=== PATIENT | male | born 1975 | race Caucasian/White ===

== ENCOUNTER 2023-01-14 10:24 | Emergency (ER) | payer OTHER, SELFPAY ==
[2023-01-14 10:25] VITALS: BP 149/97; PULSE 90; RESP 17; TEMP 36.6; O2SAT 99; BMI 32.4
--- NOTE | 2023-01-14 10:50 | EXP.UTC ---
Discharge Plan Disposition Patient Disposition: Home, Self-Care Condition: Good Prescriptions Prescriptions: New amoxicillin [amoxicillin] 500 mg tablet 500 mg PO BID 10 Days Qty: 20 0RF Referrals Follow up/Referrals: Bon Marin [Primary Care Provider] - See instructions Activity Restrictions/Add. Instructions Additional Instructions/Restrictions: follow up with dentist - call monday for appointment if symptoms worsen or no improvement return antibiotics as ordered Clinical Impressions Clinical Impression: Dental abscess Instructions Patient Instructions: Tooth Abscess Discharge [facility] [place] HPI General Stated complaint: sinus pressure Mode of Arrival: Ambulatory Source of Information: Patient Limitations: No Limitations Time Seen by Provider: 01/14/23 10:50 Description of Symptoms (Recalled from Triage Doc. by RN): Patient reports possible sinus infection. Complaint of sinus pressure and drainage for 2 days. HEENT Symptoms (Recalled from RN notes): Yes Resp Symptoms (Recalled from RN notes): No Skin Symptoms (Recalled from RN notes): No MS Symptoms (Recalled from RN notes): No Functional Status (Recalled from RN notes): wnl History of Present Illness Provider Complaint: 47 yr old male presents for sinus pressure, pain and swelling. pt states he does have pain with biting has a sharp pain but no other pain. pt states he noticed the swelling yesterday and took Benadryl with no improvement of swelling. pt states he does have a bad wisdom tooth but it only hurts if he bites down Related Data Previous Rx's Medication Instructions Recorded amoxicillin 500 mg tablet 500 mg PO BID 10 days #20 tabs 01/14/23 Allergies Allergy/AdvReac Type Severity Reaction Status Date / Time fexofenadine [From Tanisha-D] Allergy Verified 01/14/23 10:44 pseudoephedrine Allergy Verified 01/14/23 10:44 [From Tanisha-D] Worker's Comp Is this a Worker's Comp case?: No [facility] Disclaimer: The information contained in this section may have been updated after the patient was seen, as this information can be updated by other users. Social History , [employer]) Smoking Status: Smoker, status unknown alcohol intake: never current occupational status: employed Travel in the last 8 weeks: None ROS Obtained: Yes All systems reviewed & no additional complaints except as documented Constitutional Constitutional: Reports system reviewed and no additional complaints, except as documented and Reports as per HPI Eyes Eyes: Reports system reviewed and no additional complaints, except as documented ENT Ears, Nose, Mouth, and Throat: Reports system reviewed and no additional complaints, except as documented, Reports as per HPI, Reports facial pain, Reports sinus pain, Reports sinus pressure, Denies throat swelling, Denies tongue swelling and Reports other Cardiovascular Cardiovascular: Reports system reviewed and no additional complaints, except as documented Respiratory Respiratory: Reports system reviewed and no additional complaints, except as documented Gastrointestinal Gastrointestingal: Reports system reviewed and no additional complaints, except as documented Musculoskeletal Musculoskeletal: Reports system reviewed and no additional complaints, except as documented Integumentary/Breasts Skin/Breast: Reports system reviewed and no additional complaints, except as documented Neurologic Neurologic: Reports system reviewed and no additional complaints, except as documented Endocrine Endocrine: Reports system reviewed and no additional complaints, except as documented Hematologic/Lymphatic Henatologic/Lymphatic: Reports system reviewed and no additional complaints, except as documented Allergic/Immunologic Allergic/Immunologic: Denies throat swelling and Denies tongue swelling Physical Exam General General appearance: alert and in no a
[2023-01-14 10:57] VITALS: BP 149/97; PULSE 90; RESP 17; TEMP 36.6; O2SAT 99
== END 2023-01-14 11:02 | disposition home or self-care (01) ==
PROVIDERS: Emergency Provider Nurse Practitioner Family; PCP Family Medicine
DX: K04.7 Periapical abscess without sinus (principal); F17.210 Nicotine dependence, cigarettes, uncomplicated
CPT/HCPCS: 99204; 99212; G0463